=== PATIENT | female | born 1985 | race Caucasian/White ===

== ENCOUNTER 2016-08-30 21:16 | Emergency (ER) | payer OTHER ==
[~2016-08-30] VITALS: Ht 170.2 cm; Wt 82.3 kg
[~2016-08-30 21:16] MED LIST: NOHOMEMEDS
[2016-08-30 21:54] VITALS: BP 116/68
== END 2016-08-30 22:07 | disposition left against medical advice (07) ==
LOC: EME 21:16
DX: O99.89 Other specified diseases and conditions complicating pregnancy, childbirth and the puerperium (principal); M25.562 Pain in left knee; Z3A.33 33 weeks gestation of pregnancy; Z53.21 Procedure and treatment not carried out due to patient leaving prior to being seen by health care provider

== ENCOUNTER 2016-08-31 08:49 | Emergency (ER) | payer OTHER ==
[~2016-08-31] VITALS: Ht 167.6 cm; Wt 82.2 kg
[2016-08-31 11:20] VITALS: BP 119/77
== END 2016-08-31 11:29 | disposition home or self-care (01) ==
LOC: EME 08:49
DX: O99.89 Other specified diseases and conditions complicating pregnancy, childbirth and the puerperium (principal); M25.562 Pain in left knee; Z3A.33 33 weeks gestation of pregnancy
CPT/HCPCS: 73560; 99281; 99283

== ENCOUNTER 2016-10-20 06:11 | Inpatient (IN) | payer OTHER ==
[~2016-10-20] VITALS: Ht 167.6 cm; Wt 84.4 kg
[2016-10-20] VITALS (22 sets, daily range): BP systolic 103–150; BP diastolic 58–84
[2016-10-20] MEDS ORDERED: PRENATAL TABLE1 EACH PO (06:58)
[2016-10-20 08:07] LABS: EOSINOPHIL (%) 0 % (0-5); HEMATOCRIT 33.8 % (36.0-46.0); IMMATURE GRANULOCYTE (%) 0.6 % (0.0-0.7); IMMATURE GRANULOCYTE COUNT 0.1 K/uL; INSTRUMENT ABS NEUTROPHIL CT 10.7 K/uL; LYMPHOCYTE COUNT 1.1 K/uL (1.0-2.8); MCH 28.8 PG (29.0-34.0); MCHC 32.8 G/DL (30.0-36.0); MCV 87.8 FL (83-99); MEAN PLAT.VOLUME 12.4 uM^3 (9.5-12.4); MONOCYTE COUNT 0.8 K/uL (0-0.8); NEUTROPHIL (%) 84.8 % (45-76); NEUTROPHIL COUNT 10.7 K/uL (1.8-6.4); PLATELET COUNT 151 K/uL (156-360); RBC DIS.WIDTH-CV 13.8 % (11.8-14.6); RBC DIS.WIDTH-SD 44.1 % (39-53); RED BLOOD COUNT 3.85 M/uL (3.80-5.20); WHITE BLOOD COUNT 12.6 K/uL (4.1-10.2)
[2016-10-20 14:09] LABS: BASE EXCESS -4.1 mEq/L (-3 to +3); BICARBONATE 22.6 mEq/L (22-26); COMMENTS - BLOOD GASES LABR/DELIV DRAW; METHEMOGLOBIN 1.8 % (0-1.5); PCO2 46 mm Hg (35-45); PO2 < 28 mm Hg (80-100); SITE VEIN SAMP
[2016-10-20] MEDS ORDERED: IBUPROFEN800 MG PO (16:02)
[2016-10-20] MEDS ORDERED: ENDOCET 5-3251 EACH PO (16:02)
[2016-10-21 07:46] VITALS: BP 124/75
[2016-10-21 08:12] LABS: EOSINOPHIL (%) 0.4 % (0-5); EOSINOPHIL COUNT 0.1 K/uL (0-0.3); HEMATOCRIT 28.3 % (36.0-46.0); IMMATURE GRANULOCYTE COUNT 0.1 K/uL; INSTRUMENT ABS NEUTROPHIL CT 9.7 K/uL; LYMPHOCYTE COUNT 2.4 K/uL (1.0-2.8); MCH 28.3 PG (29.0-34.0); MCHC 31.1 G/DL (30.0-36.0); MEAN PLAT.VOLUME 12.7 uM^3 (9.5-12.4); MONOCYTE (%) 8.5 % (3-12); MONOCYTE COUNT 1.1 K/uL (0-0.8); NEUTROPHIL COUNT 9.7 K/uL (1.8-6.4); PLATELET COUNT 139 K/uL (156-360); RBC DIS.WIDTH-CV 14.1 % (11.8-14.6); RBC DIS.WIDTH-SD 46.2 % (39-53); RED BLOOD COUNT 3.11 M/uL (3.80-5.20); WHITE BLOOD COUNT 13.5 K/uL (4.1-10.2)
[2016-10-21 14:54] VITALS: BP 109/58
[2016-10-22 00:22] VITALS: BP 110/59
[2016-10-22 07:57] VITALS: BP 118/70
== END 2016-10-22 15:05 | disposition home or self-care (01) | DRG 775 ==
LOC: LDRP-OP 06:11 → 2WEST 06:12
PROVIDERS: Midwife; Nurse Practitioner; Obstetrics & Gynecology
DX: O70.1 Second degree perineal laceration during delivery (principal); O99.344 Other mental disorders complicating childbirth; F41.9 Anxiety disorder, unspecified; Z3A.40 40 weeks gestation of pregnancy; Z37.0 Single live birth
CPT/HCPCS: 36600; 82803; 85025; C1755; J0595; J3010; J7120